=== PATIENT | female | born 1950 | race Caucasian/White ===

== ENCOUNTER 2019-03-29 06:45 | Day surgery (SDC) | payer MEDICARE, MEDICAID ==
[2019-03-21 14:37] LABS: BASOPHILS % (AUTO) 0.4 % (0-1); EOSINOPHILS # (AUTO) 0.1 X10'3 (0-0.9); EOSINOPHILS % (AUTO) 1.8 % (0-6); LYMPHOCYTES # (AUTO) 1.4 X10'3 (1.1-4.8); LYMPHOCYTES % (AUTO) 18.3 % (21-51); MEAN CORPUSCULAR HEMOGLOBIN 29.3 PG (27.0-31.0); MEAN CORPUSCULAR HGB CONC 33.1 g/dL (33.0-36.5); MEAN CORPUSCULAR VOLUME 88.4 FL (78-98); MEAN PLATELET VOLUME 9.5 FL (7.4-10.4); MONOCYTES # (AUTO) 0.6 X10'3 (0-0.9); MONOCYTES % (AUTO) 7.9 % (2-12); NEUTROPHILS # (AUTO) 5.7 X10'3 (1.8-7.7); NEUTROPHILS % (AUTO) 71.6 % (42-75); PRE OP PLATELET COUNT 195 X10'3 (140-440); RED BLOOD COUNT 3.73 X10'6 (4.20-5.60)
[2019-03-21 14:41] LABS: PRE OP HEMOGLOBIN 10.9 g/dL (12.0-16.0)
[2019-03-21 14:49] LABS: PRE OP PROTIME 10.3 SECONDS (9.0-12.0)
[2019-03-21 14:50] LABS: ALBUMIN 3.6 G/DL (3.4-5.0); ALBUMIN/GLOBULIN RATIO 0.8 (1.1-1.5); ALKALINE PHOSPHATASE 60 IU/L (46-116); BLOOD UREA NITROGEN 32 MG/DL (7-18); BUN/CREATININE RATIO 34.4 (6.6-38.0); CALCIUM 9.5 MG/DL (8.5-10.1); CHLORIDE 102 MMOL/L (99-107); CREATININE 0.93 MG/DL (0.40-0.90); PRE OP ALT 33 U/L (30-65); PRE OP ANION GAP 3 (8-16); PRE OP AST 16 U/L (10-37); PRE OP BILIRUB, TOTAL 0.3 MG/DL (0.0-1.0); PRE OP GLUCOSE 186 MG/DL (70-104); PRE OP POTASSIUM 4.7 MMOL/L (3.4-5.1); PRE OP SODIUM 143 MMOL/L (135-145); TOTAL CARBON DIOXIDE 37.6 MMOL/L (24-32); eGFR 60 ML/MIN
[2019-03-21 14:55] LABS: HEMOGLOBIN A1C 7.3 % (4.5-6.2)
[~2019-03-29] VITALS: Ht 152.4 cm; Wt 102.8 kg
[2019-03-29] VITALS (8 sets, daily range): BP systolic 103–134; BP diastolic 53–68
[~2019-03-29 06:45] MED LIST: ALB0.5UD IH; ALBU18HF2 INH; ASPI-1265 PO; CARV-50 PO; DILT180C53 PO; DOCUMENT DATE & TIME OF BETA-BLOCKER PO ONE; FURO40TA4 PO; HYDR-3965 PO; INSU100V11 SQ; LANTUS SQ; LISI-600 PO; POTA8TAB8 PO; PRAZ2CAP2 PO; QUET200T30 PO; QUET300T2 PO; TIZA2TAB5 PO; [UNRECOGNIZED DRUG - CODE] PO; albuterol 2.5 MG/3 ML nebule NEB ONE; cefazolin/dext.iso 2gm/100 ML IV ONE; famotidine 20mg tablet PO ONE; ringers solution, lacted 1,000 ML IV SCH
[2019-03-29] MEDS ORDERED: ringers solution, lacted 1,000 ML IV SCH ×2 (07:18→08:26)
[2019-03-29] MEDS ORDERED: labetalol 20mg/4ml (5mg/ml) syringe IV PRN ×2 (07:20→08:30)
[2019-03-29] MEDS ORDERED: ondansetron/PF 4mg/2ml inj IV PRN ×2 (07:20→08:30)
[2019-03-29] MEDS ORDERED: morphine 4 MG/ML inj SYRINge IV PRN ×4 (07:20→08:30)
[2019-03-29] MEDS ORDERED: hydrALAZINE 20mg/ml inj. IV PRN ×2 (07:20→08:30)
[2019-03-29] MEDS ORDERED: fentaNYL/PF 50MCG/1 ML 2ML syringe IV PRN ×4 (07:20→08:30)
[2019-03-29] MEDS ORDERED: LIDOcaine 0.5% (5mg/ml) 50ml vial ONE (07:21)
[2019-03-29] MEDS ORDERED: BUPIVAcaine/PF 2.5mg/ml (0.25%) 10ml vial ONE ×2 (09:07→09:11)
[2019-03-29] MEDS ORDERED: fentaNYL/PF 50MCG/1 ML 2ML syringe ONE (09:18)
[2019-03-29] MEDS ORDERED: MIDAZolam 5mg/5ml vial ONE (09:18)
--- NOTE | 2019-03-29 10:20 | NUR ---
ADMITTED TO PACU FROM OR ACCOMPANIED BY ANESTHESIA. INTIAL PHYSICAL ASSESSMENT DONE AND RECORDED. REPORT RECEIVED FROM ANESTHESIA.
[2019-03-29] MEDS ORDERED: HYDROcodone/acetaminophen 10/325mg tab PO ONE (10:50)
--- NOTE | 2019-03-29 11:30 | NUR ---
DISCHARGE CRITERIA MET, DISCHARGE INSTRUCTIONS GIVEN, DEMONSTRATES VERBAL UNDERSTANDING. DISCHARGED HOME IN GOOD CONDITION.
== END 2019-03-29 11:30 | disposition home or self-care (01) ==
LOC: PAS 06:45
PROVIDERS: ATTEND Orthopaedic Surgery Hand Surgery
DX: G56.02 Carpal tunnel syndrome, left upper limb (principal); G56.22 Lesion of ulnar nerve, left upper limb; J44.9 Chronic obstructive pulmonary disease, unspecified; I10 Essential (primary) hypertension; E11.9 Type 2 diabetes mellitus without complications; G89.29 Other chronic pain; Z87.891 Personal history of nicotine dependence; E66.01 Morbid (severe) obesity due to excess calories; Z68.43 Body mass index [BMI] 50.0-59.9, adult; Z98.890 Other specified postprocedural states; Z98.51 Tubal ligation status; Z90.49 Acquired absence of other specified parts of digestive tract; Z85.118 Personal history of other malignant neoplasm of bronchus and lung; Z88.5 Allergy status to narcotic agent; Z88.8 Allergy status to other drugs, medicaments and biological substances; Z79.899 Other long term (current) drug therapy; Z79.82 Long term (current) use of aspirin; Z79.4 Long term (current) use of insulin; Z79.01 Long term (current) use of anticoagulants
CPT/HCPCS: 36415; 64718; 64721; 80053; 83036; 85025; 85610; 85730; 93005; J2001; J2250; J3010; J3490; A4215; A4565; A4618; A6449; J7120